=== PATIENT | female | born 1960 | race Caucasian/White ===

== ENCOUNTER 2024-11-09 10:30 | Emergency (ER) | payer MEDICARE, OTHER ==
[~2024-11-09] VITALS: Ht 167.6 cm; Wt 72.6 kg
[~2024-11-09 10:30] MED LIST: ALBUTEROL INH; AMPDEX10CR; AMPDEX10CR PO; Adderall 15 MG15 MG PO; CYCL10 PO; FENT200LOZ PO; FURO40 PO; GABA800 PO; ICOSAPENT ETHYL1 GM PO; METO25 PO; MORP15ER PO; MS CONTIN PO; NEXIUM 24HR20 MG PO; NICO2 PO; OXYCODONE PO; POTA10T PO; PROM25 PO; ROFL500T PO; SOMA350 MG PO; Xanax Xr2 MG PO
[2024-11-09 10:39] VITALS: BP 160/94
== END 2024-11-09 11:48 | disposition home or self-care (01) ==
LOC: ER 10:30
DX: Z48.812 Encounter for surgical aftercare following surgery on the circulatory system (principal); F17.210 Nicotine dependence, cigarettes, uncomplicated; Z88.2 Allergy status to sulfonamides; Z88.8 Allergy status to other drugs, medicaments and biological substances; Z91.030 Bee allergy status; Z79.899 Other long term (current) drug therapy; Z90.711 Acquired absence of uterus with remaining cervical stump; Z90.49 Acquired absence of other specified parts of digestive tract
CPT/HCPCS: 99282

== ENCOUNTER 2024-11-13 20:34 | Inpatient (IN) | payer MEDICARE, OTHER ==
[~2024-11-13] VITALS: Ht 175.3 cm; Wt 74.9 kg
[2024-11-13] MEDS ORDERED: NS 1,000 ML IV SCH ×2 (20:55→23:40)
[2024-11-13 21:05] LABS: BASOPHILS ABSOLUTE AUTO 0.04 K/mm3 (0.00-0.23); BASOPHILS PERCENT AUTO 1 % (0-2); EOSINOPHILS ABSOLUTE AUTO 0.00 K/mm3 (0.00-0.68); EOSINOPHILS PERCENT AUTO 0 % (0-6); Hematocrit 37.8 % (33.0-51.0); Hemoglobin 11.9 g/dL (11.5-16.0); IMMATURE GRAN ABSOLUTE AUTO 0.03 K/mm3 (0.00-0.10); IMMATURE GRAN PERCENT AUTO 0 % (0-1); LYMPHOCYTES ABSOLUTE AUTO 0.46 K/mm3 (0.84-5.20); LYMPHOCYTES PERCENT AUTO 6 % (21-46); MONOCYTES ABSOLUTE AUTO 0.56 K/mm3 (0.16-1.47); MONOCYTES PERCENT AUTO 7 % (4-13); Mean Corpuscular HGB Conc 31.5 g/dL (31.5-36.5); Mean Corpuscular Volume 82 fL (80-100); NEUTROPHILS ABSOLUTE AUTO 7.12 K/mm3 (1.96-9.15); NEUTROPHILS PERCENT AUTO 87 % (41-73); NRBC ABSOLUTE 0.00 K/mm3 (0.00-0.02); NRBC Auto 0.0 /100 WBC (0.0-0.2); Platelet Count 207 K/mm3 (150-400); RDW Coefficient Variation 16.7 % (11.7-14.2); RDW Standard Deviation 50.4 fL (35.1-46.3)
[2024-11-13 21:11] LABS: Source, Urine Clean Catch
[2024-11-13 21:14] LABS: Bilirubin, Urine Neg (Neg); Color, Urine Yellow (P-Yellow); Glucose Qualitative, Urine 4+ (Neg); Ketones, Urine 1+ (Neg); Leukocyte Esterase, Urine Neg (Neg); Protein, Urine 2+ (Neg); Specific Gravity, Urine 1.005 (1.003-1.022); Urobilinogen, Urine NORM (Normal)
[2024-11-13 21:17] LABS: Alanine Aminotransfer (ALT/SGP 32.0 U/L (12-78); Albumin, Blood 3.7 g/dL (3.4-5.0); Albumin/Globulin Ratio 1.1 (0.8-1.8); Anion Gap 5.0 mmol/L (3-11); Aspartate Aminotrans (AST/SGOT 37.0 U/L (12-37); Bilirubin, Total 0.4 mg/dL (0.1-1.0); Blood Urea Nitrogen 8.0 mg/dL (8-24); CO2, Blood 33.0 mmol/L (21-32); Calcium, Blood 8.2 mg/dL (8.5-10.1); Chloride, Blood 90.0 mmol/L (98-108); Creatinine, Blood 0.56 mg/dL (0.40-1.00); Globulin, Blood 3.4 g/dL (2.2-4.0); Glucose, Blood 139.0 mg/dL (70-99); Potassium, Blood 4.3 mmol/L (3.5-5.5); Sodium, Blood 124.0 mmol/L (136-145); Total Protein, Blood 7.1 g/dL (6.4-8.2)
[2024-11-13 21:24] LABS: U Amphetamine Screen Not Detected; U Barbituate Screen Not Detected; U Benzodiazapine Screen DETECTED; U Buprenorphine Screen Not Detected; U Cannabinoids Screen Not Detected; U Cocaine Screen Not Detected; U Methadone Screen Not Detected; U Methamphetamine Screen Not Detected; U Opiates Screen DETECTED; U Oxycodone Screen Not Detected; U Phencyclidine Screen Not Detected
[2024-11-13 21:27] LABS: Red Blood Cells, Urine 0-2 /hpf (0-2); White Blood Cells, Urine 0-2 /hpf (0-5)
[2024-11-13] MEDS ORDERED: CefTRIAXone Sodium 1,000 MG in NS 100 ML IV ONE (21:30)
[2024-11-13 21:50] LABS: Influenza A, PCR NEGATIVE (NEGATIVE); Influenza B, PCR NEGATIVE (NEGATIVE); Resp Syncytial Virus, PCR NEGATIVE (NEGATIVE); SARS-Cov-2 (COVID-19) PCR, MMC NEGATIVE (NEGATIVE)
[2024-11-13] MEDS ORDERED: Ipratropium/Albuterol SulF 2.5-0.5MG/3 ML Amp INH PRN (23:25)
[2024-11-13] MEDS ORDERED: Albuterol 2.5 MG/3 ML VIAL INH PRN (23:25)
[2024-11-14] MEDS ORDERED: MORPHINE SULFATE 100 MG PO ONE
[2024-11-14 00:18] LABS: pH Blood Venous 7.44 (7.34-7.37)
[2024-11-14 05:20] LABS: BASOPHILS ABSOLUTE AUTO 0.04 K/mm3 (0.00-0.23); BASOPHILS PERCENT AUTO 1 % (0-2); EOSINOPHILS ABSOLUTE AUTO 0.00 K/mm3 (0.00-0.68); EOSINOPHILS PERCENT AUTO 0 % (0-6); Hematocrit 41.3 % (33.0-51.0); Hemoglobin 12.7 g/dL (11.5-16.0); IMMATURE GRAN ABSOLUTE AUTO 0.03 K/mm3 (0.00-0.10); IMMATURE GRAN PERCENT AUTO 0 % (0-1); LYMPHOCYTES ABSOLUTE AUTO 1.05 K/mm3 (0.84-5.20); LYMPHOCYTES PERCENT AUTO 16 % (21-46); MONOCYTES ABSOLUTE AUTO 0.96 K/mm3 (0.16-1.47); MONOCYTES PERCENT AUTO 14 % (4-13); Mean Corpuscular HGB Conc 30.8 g/dL (31.5-36.5); Mean Corpuscular Volume 85 fL (80-100); NEUTROPHILS ABSOLUTE AUTO 4.67 K/mm3 (1.96-9.15); NEUTROPHILS PERCENT AUTO 69 % (41-73); NRBC ABSOLUTE 0.00 K/mm3 (0.00-0.02); NRBC Auto 0.0 /100 WBC (0.0-0.2); Platelet Count 192 K/mm3 (150-400); RDW Coefficient Variation 16.8 % (11.7-14.2); RDW Standard Deviation 51.8 fL (35.1-46.3)
[2024-11-14 05:50] LABS: Alanine Aminotransfer (ALT/SGP 28.0 U/L (12-78); Albumin, Blood 3.2 g/dL (3.4-5.0); Albumin/Globulin Ratio 1.0 (0.8-1.8); Anion Gap 4.0 mmol/L (3-11); Aspartate Aminotrans (AST/SGOT 35.0 U/L (12-37); Bilirubin, Total 0.3 mg/dL (0.1-1.0); Blood Urea Nitrogen 8.0 mg/dL (8-24); CO2, Blood 34.0 mmol/L (21-32); Calcium, Blood 8.4 mg/dL (8.5-10.1); Chloride, Blood 100.0 mmol/L (98-108); Creatinine, Blood 0.52 mg/dL (0.40-1.00); Globulin, Blood 3.3 g/dL (2.2-4.0); Glucose, Blood 101.0 mg/dL (70-99); Potassium, Blood 4.2 mmol/L (3.5-5.5); Sodium, Blood 134.0 mmol/L (136-145); Total Protein, Blood 6.5 g/dL (6.4-8.2)
[2024-11-14] MEDS ORDERED: MORPHINE SULFATE 100 MG PO SCH ×3 (06:00→22:00)
[2024-11-14] MEDS ORDERED: Enoxaparin 40 MG/0.4 ML SYR SC SCH (09:00)
[2024-11-14] MEDS ORDERED: Polyethylene Glycol 3350 17 gm PO SCH (09:00)
[2024-11-14] MEDS ORDERED: Lactobacil 2-S.Thermo-Bifido 1 1 Cap PO SCH (09:00)
[2024-11-14] MEDS ORDERED: CefTRIAXone Sodium 1,000 MG in NS 100 ML IV ONE (14:35)
[2024-11-14] MEDS ORDERED: VASCEPA1 G1 PO (15:50)
[2024-11-14] MEDS ORDERED: COMBIVENT RESPIM4 G1 INH (15:53)
[2024-11-14] MEDS ORDERED: METPRE4DP PO (15:55)
[2024-11-14] MEDS ORDERED: POTCHL20ER PO (15:56)
[2024-11-14] MEDS ORDERED: FURO20 PO (15:57)
[2024-11-14] MEDS ORDERED: Isosorbide Mono30 MG PO (15:59)
[2024-11-14] MEDS ORDERED: NITR.4SL SL (16:00)
[2024-11-14] MEDS ORDERED: SPIR25 PO (16:02)
[2024-11-14] MEDS ORDERED: JARDIANCE10 MG PO (16:04)
[2024-11-14] MEDS ORDERED: LOSA25 PO (16:04)
[2024-11-14 16:29] VITALS: BP 131/66
[2024-11-14] MEDS ORDERED: VASCEPA 1 GM PO SCH (17:00)
--- NOTE | 2024-11-14 17:36 | NUR ---
Spiritual Care Visit Attempted. Pt. is awake in bed, but verbalized that she was experiencing great discomfort. Pt. verbalized a request that this program checker return at another time. Informed Pt. that spiritual care would only be available on-call over the iday weekend. Pt. verbalized gratitude for the attempted visit.
--- NOTE | 2024-11-14 18:42 | NUR ---
ADMISSION NOTE MS ADAM WAS ADMITTED TO THE MEDICAL UNIT FROM ER AT 1415HRS. SHE IS ORIENTATED X4. VERY TALKATIVE WITH SOME GENERAL ANXIETY VERBALISED. SHE C/O CENTRAL UPPER BACK AND NECK SHARP PAIN WHEN SHE COUGHS. SHE HAS A HISTORY OF MS AND HAS GENERAL PAINS THAT SHE TAKES SCHEDULED MSCONTIN FOR. SHE WAS ADMITTED ON 4L NC OXYGEN, ON 3L CURRENTLY, SATS IN THE 90S, AND IS ON 2L AT HOME. SHE HAS A NON PRODUCTIVE COUGH BUT DENIES FEELING SOB. PLACED ON TELEMETRY IN SR, NO CALLS FROM RESEARCH TEST ENGINE OPERATOR. SHE C/O FEELING CONSTIPATED. SMALL FIRM BM SINCE ARRIVAL ON MEDICAL UNIT. SHE IS A 0.5PPD SMOKER AND HAS NICOTENE GUM ORDERED. SHE DENIES HAVING CIGARETTES OR IGNITION SOURCE WITH HER. HER RIGHT LEG IS SWOLLEN AFTER RECENT IR PROCEDURE, HEALED PUNCTURE WOUNDS TO RIGHT KNEE AND HEEL BARELY VISIBLE. BED LOW, CALL LIGHT IN REACH.
[2024-11-14 19:35] VITALS: BP 145/76
[2024-11-14] MEDS ORDERED: CefTRIAXone Sodium 1,000 MG in NS 100 ML IV SCH (21:00)
[2024-11-14] MEDS ORDERED: CefTRIAXone Sodium 2,000 MG in NS 100 ML IV SCH (21:00)
[2024-11-14] MEDS ORDERED: NS 0 ML IV ONE (21:07)
[2024-11-14] MEDS ORDERED: NS 250 ML IV PRN (21:20)
[2024-11-14] MEDS ORDERED: Ondansetron HCl 2 MG / ML 2ML Vial IV PRN (23:35)
--- NOTE | 2024-11-14 23:35 | NUR ---
ZOFRAN IV Q4H PRN FOR NAUSEA Patient c/o nausea and requesting zofran. There is not an order for nausea. Called and got an order from JASMIN Peña for zofran iv q4h prn for nausea.
[2024-11-14 23:59] VITALS: BP 142/73
[2024-11-15 03:29] VITALS: BP 143/76
[2024-11-15 07:25] LABS: BASOPHILS ABSOLUTE AUTO 0.04 K/mm3 (0.00-0.23); BASOPHILS PERCENT AUTO 1 % (0-2); EOSINOPHILS ABSOLUTE AUTO 0.00 K/mm3 (0.00-0.68); EOSINOPHILS PERCENT AUTO 0 % (0-6); Hematocrit 39.4 % (33.0-51.0); Hemoglobin 11.8 g/dL (11.5-16.0); IMMATURE GRAN ABSOLUTE AUTO 0.02 K/mm3 (0.00-0.10); IMMATURE GRAN PERCENT AUTO 0 % (0-1); LYMPHOCYTES ABSOLUTE AUTO 1.26 K/mm3 (0.84-5.20); LYMPHOCYTES PERCENT AUTO 18 % (21-46); MONOCYTES ABSOLUTE AUTO 0.92 K/mm3 (0.16-1.47); MONOCYTES PERCENT AUTO 13 % (4-13); Mean Corpuscular HGB Conc 29.9 g/dL (31.5-36.5); Mean Corpuscular Volume 87 fL (80-100); NEUTROPHILS ABSOLUTE AUTO 4.71 K/mm3 (1.96-9.15); NEUTROPHILS PERCENT AUTO 68 % (41-73); NRBC ABSOLUTE 0.00 K/mm3 (0.00-0.02); NRBC Auto 0.0 /100 WBC (0.0-0.2); Platelet Count 198 K/mm3 (150-400); RDW Coefficient Variation 16.8 % (11.7-14.2); RDW Standard Deviation 53.2 fL (35.1-46.3)
[2024-11-15 07:36] VITALS: BP 128/72
[2024-11-15 07:40] LABS: Anion Gap 5.0 mmol/L (3-11); Blood Urea Nitrogen 8.0 mg/dL (8-24); CO2, Blood 31.0 mmol/L (21-32); Calcium, Blood 8.5 mg/dL (8.5-10.1); Chloride, Blood 101.0 mmol/L (98-108); Creatinine, Blood 0.43 mg/dL (0.40-1.00); Glucose, Blood 114.0 mg/dL (70-99); Potassium, Blood 4.2 mmol/L (3.5-5.5); Sodium, Blood 133.0 mmol/L (136-145)
[2024-11-15 12:07] VITALS: BP 143/71
[2024-11-15] MEDS ORDERED: Magnesium Hydroxide Conc 10 ML UDC PO PRN (13:15)
[2024-11-15 17:57] VITALS: BP 144/66
--- NOTE | 2024-11-15 19:09 | NUR ---
PT A&OX4, VSS, 3L O2, SR IN 70S WITH 1ST DEGREE HB. CHRONIC PAIN AND ANXIETY, URINARY URGENCY. 1 VERY SMALL HARD BM IN BSC, 1 MED HARD BM. SBA TO BSC. PT CALLS FREQUENTLY. CALL LIGHT IN REACH.
[2024-11-15 19:25] VITALS: BP 144/77
[2024-11-16] VITALS (7 sets, daily range): BP systolic 134–155; BP diastolic 76–85
--- NOTE | 2024-11-16 04:57 | NUR ---
SHIFT SUMMARY: Pt admitted for PNA/ sepsis and is a full code. Is alert and able to make needs known. ADLs have been SBA. pain has been managed with routine medications. When asked about pain she has stated that her pain is mostly normal with more focal pain in the upper right of the ABD. she stated she wants the Dr. to look at it in the am. Iv to right hand has been patent with dressing CDI. on 3 LPM via NC to maintain SPO2 greater than 88%.
[2024-11-16 05:19] LABS: BASOPHILS ABSOLUTE AUTO 0.03 K/mm3 (0.00-0.23); BASOPHILS PERCENT AUTO 0 % (0-2); EOSINOPHILS ABSOLUTE AUTO 0.02 K/mm3 (0.00-0.68); EOSINOPHILS PERCENT AUTO 0 % (0-6); Hematocrit 38.4 % (33.0-51.0); Hemoglobin 11.6 g/dL (11.5-16.0); IMMATURE GRAN ABSOLUTE AUTO 0.01 K/mm3 (0.00-0.10); IMMATURE GRAN PERCENT AUTO 0 % (0-1); LYMPHOCYTES ABSOLUTE AUTO 1.85 K/mm3 (0.84-5.20); LYMPHOCYTES PERCENT AUTO 26 % (21-46); MONOCYTES ABSOLUTE AUTO 0.70 K/mm3 (0.16-1.47); MONOCYTES PERCENT AUTO 10 % (4-13); Mean Corpuscular HGB Conc 30.2 g/dL (31.5-36.5); Mean Corpuscular Volume 84 fL (80-100); NEUTROPHILS ABSOLUTE AUTO 4.54 K/mm3 (1.96-9.15); NEUTROPHILS PERCENT AUTO 64 % (41-73); NRBC ABSOLUTE 0.00 K/mm3 (0.00-0.02); NRBC Auto 0.0 /100 WBC (0.0-0.2); Platelet Count 240 K/mm3 (150-400); RDW Coefficient Variation 16.5 % (11.7-14.2); RDW Standard Deviation 51.0 fL (35.1-46.3)
[2024-11-16 05:36] LABS: Anion Gap 5.0 mmol/L (3-11); Blood Urea Nitrogen 8.0 mg/dL (8-24); CO2, Blood 34.0 mmol/L (21-32); Calcium, Blood 8.8 mg/dL (8.5-10.1); Chloride, Blood 98.0 mmol/L (98-108); Creatinine, Blood 0.5 mg/dL (0.40-1.00); Glucose, Blood 112.0 mg/dL (70-99); Potassium, Blood 3.6 mmol/L (3.5-5.5); Sodium, Blood 133.0 mmol/L (136-145)
[2024-11-16 10:52] LABS: Acinetobacter baumannii DNA Not Detected copy/mL (NOT DETECT); Enterobacter cloacae DNA Not Detected copy/mL (NOT DETECT); Escherichia coli DNA Not Detected copy/mL (NOT DETECT); Haemophilus influenzae DNA Not Detected copy/mL (NOT DETECT); Klebsiella aerogenes DNA Not Detected copy/mL (NOT DETECT); Klebsiella oxytoca DNA Not Detected copy/mL (NOT DETECT); Klebsiella pneumoniae DNA Not Detected copy/mL (NOT DETECT); Moraxella catarrhalis DNA Not Detected copy/mL (NOT DETECT); Proteus sp DNA Not Detected copy/mL (NOT DETECT); Pseudomonas aeruginosa DNA Not Detected copy/mL (NOT DETECT); Serratia marcescens DNA Not Detected copy/mL (NOT DETECT); Staphylococcus aureus DNA Detected Bin 10^5 copy/mL (NOT DETECT); Streptococcus agalactiae DNA Not Detected copy/mL (NOT DETECT); Streptococcus pneumoniae DNA Not Detected copy/mL (NOT DETECT); Streptococcus pyogenes DNA Not Detected copy/mL (NOT DETECT)
[2024-11-16 10:53] LABS: Chlamydia pneumonia Not Detected (NOT DETECT); Human Coronavirus RNA Not Detected (NOT DETECT); Human Metapneumovirus RNA Not Detected (NOT DETECT); Influenza virus A RNA Not Detected (NOT DETECT); Influenza virus B RNA Not Detected (NOT DETECT); Respiratory syncytial Vir RNA Not Detected (NOT DETECT); Rhinovirus+Enterovirus RNA Not Detected (NOT DETECT); mecA/C and MREJ Resist Gene Detected
--- NOTE | 2024-11-16 16:47 | NUR ---
SHIFT SUMMARY PT AOX4, COOPERATIVE, ABLE TO MAKE NEEDS KNOWN. PT IS VERY TALKATIVE. IS SBA IN ROOM FOR VOIDING. ON ROOM AIR, BASLEINE IS 2L O2. TOLERATING PO AND IV MEDICATION. CT PERFORMED TODAY, RESULTS REFLECTED IN CHART. PT WISHED TO HOLD ON BOWEL MEDICATION TONIGHT DUE TO WANTING TO SLEEP THROUGH THE NIGHT. BED IN LOWEST POSITION, CALL LIGHT WITHIN REACH.
[2024-11-17 00:18] VITALS: BP 134/83
[2024-11-17 05:47] LABS: BASOPHILS ABSOLUTE AUTO 0.03 K/mm3 (0.00-0.23); BASOPHILS PERCENT AUTO 0 % (0-2); EOSINOPHILS ABSOLUTE AUTO 0.02 K/mm3 (0.00-0.68); EOSINOPHILS PERCENT AUTO 0 % (0-6); Hematocrit 39.6 % (33.0-51.0); Hemoglobin 12.3 g/dL (11.5-16.0); IMMATURE GRAN ABSOLUTE AUTO 0.01 K/mm3 (0.00-0.10); IMMATURE GRAN PERCENT AUTO 0 % (0-1); LYMPHOCYTES ABSOLUTE AUTO 2.10 K/mm3 (0.84-5.20); LYMPHOCYTES PERCENT AUTO 31 % (21-46); MONOCYTES ABSOLUTE AUTO 0.66 K/mm3 (0.16-1.47); MONOCYTES PERCENT AUTO 10 % (4-13); Mean Corpuscular HGB Conc 31.1 g/dL (31.5-36.5); Mean Corpuscular Volume 82 fL (80-100); NEUTROPHILS ABSOLUTE AUTO 3.93 K/mm3 (1.96-9.15); NEUTROPHILS PERCENT AUTO 58 % (41-73); NRBC ABSOLUTE 0.00 K/mm3 (0.00-0.02); NRBC Auto 0.0 /100 WBC (0.0-0.2); Platelet Count 315 K/mm3 (150-400); RDW Coefficient Variation 16.4 % (11.7-14.2); RDW Standard Deviation 48.9 fL (35.1-46.3)
[2024-11-17 06:13] LABS: Anion Gap 4.0 mmol/L (3-11); Blood Urea Nitrogen 8.0 mg/dL (8-24); CO2, Blood 35.0 mmol/L (21-32); Calcium, Blood 9.2 mg/dL (8.5-10.1); Chloride, Blood 98.0 mmol/L (98-108); Creatinine, Blood 0.43 mg/dL (0.40-1.00); Glucose, Blood 123.0 mg/dL (70-99); Magnesium, Blood 1.8 mg/dL (1.6-2.4); Potassium, Blood 4.0 mmol/L (3.5-5.5); Sodium, Blood 133.0 mmol/L (136-145)
--- NOTE | 2024-11-17 06:30 | NUR ---
SHIFT SUMMARY: Pt admitted for PNA/ sepsis and is a full code. Is alert and able to make needs known. ADLs have been SBA. pain has been managed with routine medications. When asked about pain she has stated that her pain is mostly normal with more focal pain in the upper right of the ABD. she stated she wants the Dr. to look at it in the am. Iv to right hand has been patent with dressing CDI. telly noted that she was sinus in the 70s. One 9 beat run of VTAC was reported then converted to NSR. when asked she didn t report anything abnormal. Reported to Dr. James, he gave T.O. to make sure that a chem panel was with morning labs and add a mag level.
[2024-11-17 07:43] VITALS: BP 123/71
[2024-11-17 10:58] VITALS: BP 148/69
--- NOTE | 2024-11-17 15:03 | NUR ---
SHIFT SUMMARY PATIENT A/O X4, AMBULATING IN HAN. REQUESTING XANAX FOR ANXIETY. ACCEPTING OF SCHEDULED MEDS EXCEPT LACTULOSE WHICH SHE DECLINED. REPORTS HAVING BM THIS SHIFT. INSTRUCTED PATIENT ON HOW TO ORDER FOOD FROM THE KITCHEN, REQUESTING FRESH FRUIT TO AIDE HER IN HAVING MORE FREQUENT BM'S. CALL LIGHT IN REACH, ABLE TO MAKE NEEDS KNOWN.
[2024-11-17 15:09] VITALS: BP 131/81
[2024-11-17 19:19] VITALS: BP 149/69
[2024-11-18 00:17] VITALS: BP 147/80
[2024-11-18 04:22] VITALS: BP 142/84
--- NOTE | 2024-11-18 06:30 | NUR ---
SHIFT SUMMARY: Pt admitted for PNA/ sepsis and is a full code. Is alert and able to make needs known. ADLs have been SBA. pain has been managed with routine medications. Melvin noted sinus in the 70s with no events.
[2024-11-18 08:12] VITALS: BP 156/88
[2024-11-18 09:30] VITALS: BP 149/99
[2024-11-18] MEDS ORDERED: CefTRIAXone Sodium 2,000 MG in NS 100 ML IV SCH (10:30)
[2024-11-18 11:35] VITALS: BP 153/67
[2024-11-18] MEDS ORDERED: ALBU90OI INH (12:00)
[2024-11-18] MEDS ORDERED: LACT10SY PO (12:05)
[2024-11-18] MEDS ORDERED: Senna-Extra17.2 MG PO (12:09)
[2024-11-18] MEDS ORDERED: VISBIOME 112.51 EACH PO (12:09)
[2024-11-18] MEDS ORDERED: Milk Of Ma400 MG/5 M PO (12:09)
[2024-11-18] MEDS ORDERED: CEFU500T30 PO (12:11)
--- NOTE | 2024-11-18 13:40 | NUR ---
PT DISCHARGED HOME. FRIEND CAME TO PROVIDE RIDE TO PT. PT EDUCATED RE DISCHARGE PACKET AND MEDICATIONS ORDERED. 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 IV REMOVED AND SITE APPEARS WNL. TELE REMOVED/CLEANED AND RETURNED TO PCU. PT TAKEN TO PRIVATE VEHICLE BY WC - PT ABLE TO STAND AND AMBULATE INDEPENDENTLY TO .
== END 2024-11-18 13:26 | disposition home or self-care (01) | DRG 871 ==
LOC: ER 20:34 → ERHOLD 22:45 → MEDS 11-14 13:56
PROVIDERS: Emergency Medicine; Student in an Organized Health Care Education/Training Program; ADMIT Family Medicine
DX: A41.02 Sepsis due to Methicillin resistant Staphylococcus aureus (principal); J15.212 Pneumonia due to Methicillin resistant Staphylococcus aureus; J96.01 Acute respiratory failure with hypoxia; J69.0 Pneumonitis due to inhalation of food and vomit; J15.4 Pneumonia due to other streptococci; E87.1 Hypo-osmolality and hyponatremia; I50.22 Chronic systolic (congestive) heart failure; J44.1 Chronic obstructive pulmonary disease with (acute) exacerbation; J44.0 Chronic obstructive pulmonary disease with (acute) lower respiratory infection; I47.19 Other supraventricular tachycardia; R65.20 Severe sepsis without septic shock; G35 Multiple sclerosis; F90.9 Attention-deficit hyperactivity disorder, unspecified type; F17.210 Nicotine dependence, cigarettes, uncomplicated; I11.0 Hypertensive heart disease with heart failure; G89.29 Other chronic pain; F41.1 Generalized anxiety disorder; K59.00 Constipation, unspecified; Z88.8 Allergy status to other drugs, medicaments and biological substances; Z88.2 Allergy status to sulfonamides; Z88.1 Allergy status to other antibiotic agents; Z91.030 Bee allergy status; Z79.899 Other long term (current) drug therapy; Z79.51 Long term (current) use of inhaled steroids; Z79.891 Long term (current) use of opiate analgesic; Z90.710 Acquired absence of both cervix and uterus; Z90.49 Acquired absence of other specified parts of digestive tract; Z90.89 Acquired absence of other organs; Z90.721 Acquired absence of ovaries, unilateral; Z98.890 Other specified postprocedural states; Z98.1 Arthrodesis status
CPT/HCPCS: 0528U; 36415; 71045; 74177; 80048; 80053; 81001; 82803; 83605; 83735; 83880; 84484; 85025; 87040; 87184; 87637; 93005; 93010; 93308; 94760; 96365; 99285-25; A9270; J0456; J0696; J1650; J1938; J2405; J7030; J7040; J7050; J7512; Q9967

== ENCOUNTER 2024-12-24 11:50 | Emergency (ER) | payer MEDICARE, OTHER ==
[~2024-12-24] VITALS: Ht 175.3 cm; Wt 69.8 kg
[~2024-12-24 11:50] MED LIST changes: +ALBU90OI INH; +CEFU500T30 PO; +COMBIVENT RESPIM4 G1 INH; +FURO20 PO; +Isosorbide Mono30 MG PO; +JARDIANCE10 MG PO; +LACT10SY PO; +LOSA25 PO; +METPRE4DP PO; +Milk Of Ma400 MG/5 M PO; +NITR.4SL SL; +POTCHL20ER PO; +SPIR25 PO; +Senna-Extra17.2 MG PO; +VASCEPA1 G1 PO; +VISBIOME 112.51 EACH PO
[2024-12-24] MEDS ORDERED: ONDA4 PO (14:32)
[2024-12-24] MEDS ORDERED: CYCL10 PO (14:35)
[2024-12-24 15:17] LABS: BASOPHILS ABSOLUTE AUTO 0.04 K/mm3 (0.00-0.23); BASOPHILS PERCENT AUTO 1 % (0-2); EOSINOPHILS ABSOLUTE AUTO 0.05 K/mm3 (0.00-0.68); EOSINOPHILS PERCENT AUTO 1 % (0-6); Hematocrit 38.2 % (33.0-51.0); Hemoglobin 12.7 g/dL (11.5-16.0); IMMATURE GRAN ABSOLUTE AUTO 0.03 K/mm3 (0.00-0.10); IMMATURE GRAN PERCENT AUTO 1 % (0-1); LYMPHOCYTES ABSOLUTE AUTO 1.17 K/mm3 (0.84-5.20); LYMPHOCYTES PERCENT AUTO 27 % (21-46); MONOCYTES ABSOLUTE AUTO 0.24 K/mm3 (0.16-1.47); MONOCYTES PERCENT AUTO 6 % (4-13); Mean Corpuscular HGB Conc 33.2 g/dL (31.5-36.5); Mean Corpuscular Volume 81 fL (80-100); NEUTROPHILS ABSOLUTE AUTO 2.87 K/mm3 (1.96-9.15); NEUTROPHILS PERCENT AUTO 65 % (41-73); NRBC ABSOLUTE 0.00 K/mm3 (0.00-0.02); NRBC Auto 0.0 /100 WBC (0.0-0.2); RDW Coefficient Variation 20.6 % (11.7-14.2); RDW Standard Deviation 60.1 fL (35.1-46.3)
[2024-12-24] MEDS ORDERED: Ondansetron HCl 2 MG / ML 2ML Vial IV ONE (15:20)
[2024-12-24 15:27] LABS: Alanine Aminotransfer (ALT/SGP 110.0 U/L (12-78); Albumin, Blood 3.3 g/dL (3.4-5.0); Albumin/Globulin Ratio 1.0 (0.8-1.8); Anion Gap 8.0 mmol/L (3-11); Aspartate Aminotrans (AST/SGOT 82.0 U/L (12-37); Bilirubin, Total 1.8 mg/dL (0.1-1.0); Blood Urea Nitrogen 12.0 mg/dL (8-24); CO2, Blood 30.0 mmol/L (21-32); Calcium, Blood 8.7 mg/dL (8.5-10.1); Chloride, Blood 98.0 mmol/L (98-108); Creatinine, Blood 0.54 mg/dL (0.40-1.00); Globulin, Blood 3.2 g/dL (2.2-4.0); Glucose, Blood 125.0 mg/dL (70-99); Potassium, Blood 4.0 mmol/L (3.5-5.5); Sodium, Blood 132.0 mmol/L (136-145); Total Protein, Blood 6.5 g/dL (6.4-8.2)
[2024-12-24 16:10] LABS: Source, Urine Clean Catch
[2024-12-24 16:12] LABS: Bilirubin, Urine Neg (Neg); Color, Urine Yellow (P-Yellow); Glucose Qualitative, Urine Neg (Neg); Ketones, Urine Neg (Neg); Leukocyte Esterase, Urine Neg (Neg); Protein, Urine 1+ (Neg); Specific Gravity, Urine 1.005 (1.003-1.022); Urobilinogen, Urine 1+ (Normal)
[2024-12-24] MEDS ORDERED: Diazepam 5 MG / ML 2ML SYR IV ONE ×2 (19:35→20:20)
[2024-12-24] MEDS ORDERED: Morphine Sulfate 4 MG/1 ML Injection IV ONE (20:20)
[2024-12-24] MEDS ORDERED: MORPHINE SULFATE 100 MG PO ONE (23:10)
[2024-12-25 01:52] VITALS: BP 148/92
== END 2024-12-25 01:55 | disposition home or self-care (01) ==
LOC: ER 11:50
PROVIDERS: Physician Assistant; Student in an Organized Health Care Education/Training Program
DX: R10.11 Right upper quadrant pain (principal); R74.01 Elevation of levels of liver transaminase levels; R74.8 Abnormal levels of other serum enzymes; K83.8 Other specified diseases of biliary tract; G35 Multiple sclerosis; I11.0 Hypertensive heart disease with heart failure; I50.30 Unspecified diastolic (congestive) heart failure; F17.200 Nicotine dependence, unspecified, uncomplicated; Z90.49 Acquired absence of other specified parts of digestive tract; Z88.2 Allergy status to sulfonamides; Z88.1 Allergy status to other antibiotic agents; Z88.6 Allergy status to analgesic agent; Z91.030 Bee allergy status; Z88.8 Allergy status to other drugs, medicaments and biological substances; Z79.84 Long term (current) use of oral hypoglycemic drugs; Z79.899 Other long term (current) drug therapy
CPT/HCPCS: 51798; 74177; 74181; 80053; 82248; 83690; 83735; 84484; 85025; A9270; J2270; J2405; J3360; Q9967